=== PATIENT | male | born 1960 | race Caucasian/White ===

== ENCOUNTER → 2017-08-07 11:02 | Outpatient (CLI) | payer BC, SELFPAY ==
--- NOTE | 2017-08-07 11:09 | VDLE_ITS ---
Reason For Study: EDEMA Procedure LEFT Exam performed in department. GSV is normal. A preliminary report was called and/or CFV is compressible, spontaneous, phasic, faxed to DR Carrie pt taken to ED. competent, and demonstrates normal augmentation. FV is compressible, spontaneous, phasic, competent and demonstrates normal augmentation. POP V is compressible, spontaneous, phasic, competent and demonstrates normal augmentation. T/P Trunk is compressible. PTV is compressible. LT PerV is compressible. There are two hypoechoic, nonvascularized structures located POSTERIORLY to the Pop V measuring 2.1 x 1.2 cm and 1.7 x 2.4 cm. Interpretation Summary There is no evidence of left lower extremity deep vein thrombosis. Left greater saphenous vein appears patent and compressible segmentally. 2.1 x 1.2cm and 1.7 x 2.4cm cytic structures left popliteal space Ordering Physician: Yudy Butler Referring Physician: RENZO BLANC Performed By: Balbina Gregg, NUZHATCS, RVT
== END ==
PROVIDERS: Family Provider Family Medicine; PCP Family Medicine; Visit Provider Family Medicine
DX: R60.0 Localized edema (principal)
CPT/HCPCS: 93971

== ENCOUNTER 2017-08-07 11:46 | Emergency (ER) | payer BC, SELFPAY ==
[2017-08-07 11:47] VITALS: BP 136/82; PULSE 84; RESP 18; TEMP 36.6; O2SAT 97; BMI 29.8
[2017-08-07 11:58] VITALS: BP 125/82; PULSE 77; RESP 14; O2SAT 97
--- NOTE | 2017-08-07 12:59 | CT_ITS ---
STUDY: CT LEFT KNEE/LOWER LEG WITH CONTRAST REASON FOR EXAM: Mass behind left knee. TECHNIQUE: Transaxial CT imaging of the knee/lower leg was performed post contrast administration. The examination was performed with intravenous administration of 100CC ml of Isovue 300 contrast material. COMPARISON: Radiographs 08/07/2017. FINDINGS: Normal medial femoral condyle and medial tibial plateau. There is preservation of the articular joint space of the medial knee compartment. Normal lateral femoral condyle and lateral tibial plateau. There is preservation of the articular joint space of the lateral knee compartment. Normal proximal tibiofibular articulation. Normal tibia and fibula. There is a small joint effusion of the knee. The quadriceps tendon is grossly normal. The patellar tendon is grossly normal. Normal Hoffa's fat pad. There is a lobulated cystic lesion extending from the popliteus musculotendinous junction into the popliteus muscle (sagittal reconstructions 45-55; axial images 53-74) measuring approximately 2.1 x 5.3 cm (AP x length). There is no abnormal contrast enhancement. The leading differential consideration is a ganglion cyst of the popliteus musculotendinous junction. A myxoma of the popliteus muscle also is a differential consideration. MRI with contrast would be more useful in evaluation. There is edema in the subcutis adipose space of the lower leg. CT/Extremity Lower WITH Contrast IMPRESSION: Lobulated cystic lesion extending from the popliteus musculotendinous junction into the popliteus muscle, differential considerations would include a ganglion cyst and myxoma. Small joint effusion of the knee. Edema in the subcutis adipose space of the lower leg. Electronically Signed: Yohan Adame MD at 14:38 EDT Tel , Service support ,
--- NOTE | 2017-08-07 12:59 | RAD_ITS ---
STUDY: X-RAY - LEFT KNEE REASON FOR EXAM: Male, 57 years old. Left leg mass and pain, distal tibia and fibula x4 days. TECHNIQUE: 4 view(s) of the knee. COMPARISON: None available. FINDINGS: Mild medial and patellofemoral compartmental joint space narrowing noted. Mild osteophyte projects superiorly off the patellar articular margin with lateral view. Normal visualized proximal tibia and fibula. Normal proximal tibiofibular articulation. Moderate suprapatellar increased diffuse density identified, may represent joint effusion and/or soft tissue swelling. Normal lateral femorotibial compartment. No finding of acute displaced fracture, dislocation or radiopaque foreign body identified. No subcutaneous emphysema noted. RAD/Knee 4 or More Views IMPRESSION: Moderate suprapatellar joint effusion and/or soft tissue swelling noted for which sterility cannot be determined radiographically. Clinical correlation recommended. Mild prepatellar soft tissue swelling. No finding of acute displaced fracture or dislocation identified. Electronically Signed: Javier Chamberlain, at 14:53 EDT Tel , Service support ,
[2017-08-07 13:09] LABS: Absolute Neutrophil Count 4.8 X10^3/uL (2.0-7.7); Basophil# 0.02 X10^3/uL; Basophil% 0.3 % (0-1); Eosinophil# 0.18 X10^3/uL; Eosinophils% 2.4 % (0-5); Hematocrit 42.7 % (40-54); Hemoglobin 14.2 g/dl (13.0-16.5); Lymphocyte % 22.9 % (19-41); Mean Corp Hgb Conc 33.3 g/gl (32-36); Mean Corpuscular Hgb 29.2 pg (27.0-32.0); Mean Corpuscular Volume 87.7 fL (80-94); Mean Platelet Vol. 9.3 fl (6.2-12.0); Monocyte# 0.74 X10^3/uL; Neutrophil # 4.77 X10^3/uL (2.7-7.7); Neutrophil % 64.3 % (47-70); Platelet Count 213 K/mm3 (150-450); RBC Distribution Width CV 13.1 % (11.6-14.6); RBC Distribution Width SD 41.8 fl (35.1-43.9); Red Blood Count 4.87 M/mm3 (4.6-6.2); White Blood Count 7.4 K/mm3 (4.4-11.0)
[2017-08-07 13:24] LABS: Anion Gap 5 (5-15); BUN 15 mg/dL (7-18); BUN/Creat Ratio 18.8 RATIO (10-20); CPK Total, Creatine Kinase 206 U/L (39-308); Chloride 104 mmol/L (98-107); EST Glomerular Filtration Rate 106 mL/min (>60); Est Glom Filt Rate - Afr Amer 129 mL/min (>60); Estimated Creatinine Clearance 113.17 ml/min; Glucose 104 mg/dL (74-106); Potassium 4.5 mmol/L (3.5-5.1); Sodium Level 138 mmol/L (136-145)
[2017-08-07 13:38] LABS: POSITIVE COUNT NO; POSITIVE DIFFERENTIAL NO; POSITIVE MORPHOLOGY NO
--- NOTE | 2017-08-07 15:43 | ED.DCSUM_ITS ---
- ER Visit Summary Date of Service: 08/07/17 Chief Complaint: Leg pain History of Present Illness: The patient is a 57 M with left leg pain. The patient has left leg pain and swelling for 5 days. He was sent because he had an abnormal outpatient ultrasound. He has no history of DVT or PE. No sign of trauma. No sign of infection or history of infection. Physical Examination: Afebrile and vital signs unremarkable. Compartment soft, but his left calf is swollen and tender. He is neurovascular intact distally. No sign of erythema or warmth. Skin is intact. Test Results: Labs including CBC, BMP, and CK normal. X-rays show a knee effusion but no fracture. CT shows a lobulated cystic lesion at the popliteus muscle with concern for either ganglion cyst or myxoma. Emergency Department Course and Treatment: I spoke with the radiologist. He was recommending an MRI. This would give more information, but does not need to be done emergently. He does not think this is an abscess based on his imaging and I do not think it is an abscess based on my exam or laboratory findings. He said it would be extremely rare for this to be some type of malignancy. I spoke with the patient's on-call primary care doctor. They will follow-up with him as an outpatient for MRI. I will also refer him to orthopedics as needed. He was given crutches and a short course of Percocet. His prescription database record is negative. Treatment Plan: As above Disposition: Discharged Impression: 1. Left leg mass This note was generated with [employer] dictation software. It may contain incorrect words, spelling, and punctuation that were not noted in review of the chart prior to signing ED Disposition - Plan for ED Patient: Chief Complaint: Lower Extremity Injury Referrals: Ashok Galeana MD [Primary Care Provider] -
--- NOTE | 2017-08-07 15:43 | ED.DEP ---
ED Disposition - Plan for ED Patient: Chief Complaint: Lower Extremity Injury Instructions: Using Crutches: [id number] Prescriptions: Oxycodone HCl/Acetaminophen [Percocet 5/325] 1 tab PO Q6H PRN PRN 3 Days #12 tab PRN Reason: Pain Referrals: González Banuelos MD [STAFF PHYSICIAN] - As Needed Ashok Galeana MD [Primary Care Provider] - As soon as possible
== END 2017-08-07 15:56 | disposition home or self-care (01) ==
PROVIDERS: Emergency Provider Emergency Medicine; Family Provider Family Medicine; PCP Family Medicine
DX: M62.89 Other specified disorders of muscle (principal)
CPT/HCPCS: 73564; 73701; 80048; 82550; 85025; 96360; 99284; J7030; J7040; Q9967; A4216

== ENCOUNTER → 2017-08-08 16:20 | Outpatient (CLI) | payer BC, SELFPAY ==
[2017-08-08 17:30] LABS: Synovial Fld Mononuclear WBC % 15.5 %; Synovial Fld Polynuclear WBC # 23.802 10^3/ul; Synovial Fld Polynuclear WBC % 84.5 %
[2017-08-08 19:42] LABS: AUTO B FLUID DILUENT BKGD CT WBC <0.1 RBC <0.01 (W<.1,R<.01); Source- Body Fluid SYNOVIAL
[2017-08-08 19:43] LABS: Appearance /Synovial Fluid Turbid (CLEAR); Color / Synovial Fluid Yellow (Pale Yellow); Lymph 8 %; Neutrophil 92 % (0-25); RBC /Synovial Fluid 107 /mm3 (0); Synovial Fld Mononuclear WBC # 4.357 10^3/ul
[2017-08-08 19:44] LABS: Body Fluid QC Type(s) BF1Q,BF2Q; Pathologist Review Will follow
[2017-08-09 14:15] LABS: Pathologist Comment Reviewed
== END ==
PROVIDERS: Family Provider Family Medicine; PCP Family Medicine; Visit Provider Specialist
DX: M25.462 Effusion, left knee (principal)
CPT/HCPCS: 87015; 87070; 87075; 87101; 87116; 87205; 87206; 89050; 89051; 89060

== ENCOUNTER → 2017-08-19 15:15 | Outpatient (CLI) | payer BC, SELFPAY ==
--- NOTE | 2017-08-19 15:54 | EKG12_ITS ---
Test Reason : PRE OP Blood Pressure : / mmHG Vent. Rate : 075 BPM Atrial Rate : 075 BPM P-R Int : 178 ms QRS Dur : 102 ms QT Int : 384 ms P-R-T Axes : 025 -14 026 degrees QTc Int : 428 ms Normal sinus rhythm Minimal voltage criteria for LVH, may be normal variant Borderline ECG Confirmed by QUINTON SERRANO, MUSTAPHA ([id number]), assignment editor KRIS CHAMPION ([id number]) on 08/20/2017 8:51:09 AM Referred By: González Banuelos Confirmed By:MUSTAPHA ALCANTARA MD
[2017-08-19 16:41] LABS: Hematocrit 43.6 % (40-54); Hemoglobin 14.8 g/dl (13.0-16.5); Mean Corp Hgb Conc 33.9 g/gl (32-36); Mean Corpuscular Hgb 29.3 pg (27.0-32.0); Mean Corpuscular Volume 86.3 fL (80-94); Mean Platelet Vol. 9.5 fl (6.2-12.0); Platelet Count 351 K/mm3 (150-450); RBC Distribution Width CV 12.9 % (11.6-14.6); Red Blood Count 5.05 M/mm3 (4.6-6.2); White Blood Count 7.1 K/mm3 (4.4-11.0)
[2017-08-19 16:58] LABS: Scan Indicated on CBC? Y/N NO
[2017-08-19 17:14] LABS: Anion Gap 7 (5-15); BUN 18 mg/dL (7-18); BUN/Creat Ratio 21.3 RATIO (10-20); Calcium,Total 9.4 mg/dL (8.5-10.1); Chloride 100 mmol/L (98-107); Creatinine, Serum 0.84 mg/dL (0.70-1.30); EST Glomerular Filtration Rate 100 mL/min (>60); Est Glom Filt Rate - Afr Amer 121 mL/min (>60); Glucose 96 mg/dL (74-106); Potassium 4.4 mmol/L (3.5-5.1); Sodium Level 136 mmol/L (136-145)
== END ==
PROVIDERS: Family Provider Family Medicine; PCP Family Medicine; Visit Provider Specialist
DX: Z01.818 Encounter for other preprocedural examination (principal)
CPT/HCPCS: 36415; 80048; 85027; 93005

== ENCOUNTER → 2017-12-31 07:34 | Outpatient (CLI) | payer BC, SELFPAY ==
--- NOTE | 2017-12-31 10:47 | NEURO_ITS ---
NCS and/or EMG Patient Report Ordering Doctor: González Banuelos DATE OF SERVICE: 12/31/17 This is a lower extremity EMG and nerve conduction study performed on this 57- year-old male with numbness on the bottom of his left foot for approximately 5 months. He says he has had a Dempsey's cyst and is left knee he also had arthroscopic surgery in his left knee 2-3 months ago. He says the numbness may have improved to some extent. There is no history of back pain. Right side is normal without symptoms. Left lower extremity sensory and motor nerve conduction studies performed. The sural sensory and medial and lateral plantar responses on the left are preserved. The left peroneal motor and tibial motor distal latencies, amplitudes and conduction velocities are normal. The tibial and peroneal F- wave latencies and tibial H reflexes bilaterally are normal. Left lower extremity needle electromyography is performed. Muscles evaluated included the extensor digitorum brevis, abductor halitosis, medial gastrocnemius , anterior tibialis, vastus medialis and vastus lateralis muscles. All muscles demonstrated normal insertional activity with absence of pathologic spontaneous activity. Motor unit potential recruitment pattern and amplitude was normal in all muscles tested. Impression: Normal electrophysiologic study of the left lower extremity
== END ==
PROVIDERS: Family Provider Family Medicine; PCP Family Medicine; Visit Provider Specialist
DX: R20.8 Other disturbances of skin sensation (principal)
CPT/HCPCS: 95886; 95910

== ENCOUNTER → 2019-05-09 07:50 | Outpatient (CLI) | payer BC, SELFPAY ==
[2019-05-09 09:21] LABS: Anion Gap 3 (5-15); BUN 13 mg/dL (7-18); BUN/Creat Ratio 14.4 RATIO (10-20); Chloride 106 mmol/L (98-107); Cholesterol 256 mg/dL (200); EST Glomerular Filtration Rate 92 mL/min (>60); Est Glom Filt Rate - Afr Amer 111 mL/min (>60); Glucose 106 mg/dL (74-106); High Density Lipoprotein 44 mg/dL; PSA,Total - Annual Screen 2.26 ng/mL (0.00-4.00); Potassium 4.2 mmol/L (3.5-5.1); Sodium Level 140 mmol/L (136-145); Triglycerides 128 mg/dL; Very Low Density Lipoprotein 26 mg/dL (5-40)
== END ==
PROVIDERS: Family Provider Family Medicine; PCP Family Medicine; Referring Provider Nurse Practitioner Family; Visit Provider Nurse Practitioner Family
DX: Z00.00 Encounter for general adult medical examination without abnormal findings (principal); Z12.5 Encounter for screening for malignant neoplasm of prostate
CPT/HCPCS: 36415; 80048; 80061; 84153; G0103

== ENCOUNTER → 2020-03-23 15:30 | Outpatient (CLI) | payer BC, SELFPAY ==
[2020-03-23 19:09] LABS: ALB/GLOB Ratio 0.9 RATIO (0.9-2.4); AST(SGOT) 25 U/L (15-37); Alanine Aminotransfer ALT/SGPT 43 U/L (16-61); Albumin, Serum 3.8 g/dL (3.2-5.0); Alkaline Phosphatase 82 U/L (45-117); Anion Gap 7 (5-15); BUN 15 mg/dL (7-18); BUN/Creat Ratio 16.7 RATIO (10-20); Calcium,Total 9.1 mg/dL (8.5-10.1); Chloride 103 mmol/L (98-107); Cholesterol 229 mg/dL (200); EST Glomerular Filtration Rate 92 mL/min (>60); Est Glom Filt Rate - Afr Amer 111 mL/min (>60); Globulin 4.2 g/dL (2.2-4.2); Glucose 94 mg/dL (74-106); High Density Lipoprotein 38 mg/dL; Sodium Level 136 mmol/L (136-145); T4 Free Direct 1.12 ng/dL (0.76-1.46); Thyroid Stim Hormone (TSH) 1.47 uIU/mL (0.358-3.74); Triglycerides 224 mg/dL; Very Low Density Lipoprotein 45 mg/dL (5-40)
[2020-04-01 04:44] LABS: Anti-Thyroglobulin AB 1.1 IU/mL (0.0-0.9); Thyroglobulin RIA 2.4 ng/mL (.); Thyroid Peroxidase AB 17 IU/mL (0-34)
== END ==
PROVIDERS: PCP Family Medicine; Referring Provider Family Medicine; Visit Provider Family Medicine
DX: E78.5 Hyperlipidemia, unspecified (principal); E01.0 Iodine-deficiency related diffuse (endemic) goiter
CPT/HCPCS: 36415; 80053; 80061; 84432; 84439; 84443; 86376; 86800

== ENCOUNTER → 2020-04-02 09:54 | Outpatient (CLI) | payer BC, SELFPAY ==
--- NOTE | 2020-04-02 10:00 | US_ITS ---
STUDY: THYROID ULTRASOUND REASON FOR EXAM: Male, 59 years old. THYROMEGALY TECHNIQUE: Ultrasound evaluation of the thyroid was performed with real-time and static bee-scale imaging. COMPARISON: None. FINDINGS: RIGHT LOBE: The right lobe of the thyroid gland measures 5.1 x 1.7 x 2.1 cm. There is a homogeneous echotexture. Mid pole subcentimeter cyst which is solid in nature with slight internal vascularity measuring 7 x 5 x 5 mm. LEFT LOBE: The left lobe of the thyroid gland measures 4.3 x 1.5 x 1.6 cm. There is a homogeneous echotexture. Single upper pole solid nodule measuring 3 x 2 x 2 mm. ISTHMUS: The isthmus measures 4 mm. The regional lymph nodes are normal. US/Thyroid IMPRESSION: Small subcentimeter nodules bilaterally. Otherwise, unremarkable thyroid exam Electronically Signed: Tab Pierce DO at 8:19 EST Tel , Service support ,
== END ==
PROVIDERS: PCP Family Medicine; Referring Provider Family Medicine; Visit Provider Family Medicine
DX: E01.0 Iodine-deficiency related diffuse (endemic) goiter (principal)
CPT/HCPCS: 76536

== ENCOUNTER → 2023-04-11 | Outpatient (CLI) | payer BC, SELFPAY ==
[2023-04-11 12:12] LABS: Absolute Lymphocyte Count 1.35 X10^3/uL (0.83-4.51); Absolute Neutrophil Count 3.4 X10^3/uL (2.0-7.7); Basophil# 0.05 X10^3/uL; Basophil% 0.9 % (0-1); Eosinophil# 0.36 X10^3/uL; Eosinophils% 6.5 % (0-5); Hemoglobin 14.9 g/dL (13.0-16.5); Lymphocyte # 1.35 X10^3/ul (0.83-4.51); Lymphocyte % 24.5 % (19-41); Mean Corp Hgb Conc 32.4 g/dL (32-36); Mean Corpuscular Hgb 29.3 pg (27.0-32.0); Mean Corpuscular Volume 90.4 fL (80-94); Mean Platelet Vol. 10.1 fl (6.2-12.0); Monocyte# 0.38 X10^3/uL; Monocyte% 6.9 % (0-10); NRBC Flagged by Analyzer 0 % (0-5); Neutrophil # 3.35 X10^3/uL (2.7-7.7); Neutrophil % 60.8 % (47-70); Platelet Count 225 K/mm3 (150-450); RBC Distribution Width CV 12.6 % (11.6-14.6); RBC Distribution Width SD 41.6 fl (35.1-43.9); Red Blood Count 5.09 M/mm3 (4.6-6.2); White Blood Count 5.5 K/mm3 (4.4-11.0)
[2023-04-11 12:40] LABS: AST(SGOT) 16 U/L (15-37); Alanine Aminotransfer ALT/SGPT 33 U/L (16-61); Albumin, Serum 3.7 g/dL (3.2-5.0); Alkaline Phosphatase 65 U/L (45-117); Anion Gap 4 (5-15); BUN 14 mg/dL (7-18); BUN/Creat Ratio 16.4 RATIO (10-20); Calcium,Total 8.6 mg/dL (8.5-10.1); Chloride 106 mmol/L (98-107); Cholesterol 190 mg/dL (200); Creatinine, Serum 0.86 mg/dL (0.70-1.30); EST Glomerular Filtration Rate 97 mL/min (>60); Est Glom Filt Rate - Afr Amer 117 mL/min (>60); Globulin 3.6 g/dL (2.2-4.2); Glucose 104 mg/dL (74-106); High Density Lipoprotein 44 mg/dL; PSA,Total - Annual Screen 3.29 ng/mL (0.00-4.00); Potassium 4.5 mmol/L (3.5-5.1); Protein, Total 7.3 g/dL (6.4-8.2); Sodium Level 138 mmol/L (136-145); Triglycerides 84 mg/dL; Very Low Density Lipoprotein 17 mg/dL (5-40)
== END | disposition home or self-care (01) ==
PROVIDERS: PCP Family Medicine; Visit Provider Family Medicine
DX: Z12.5 Encounter for screening for malignant neoplasm of prostate (principal); E78.5 Hyperlipidemia, unspecified
CPT/HCPCS: 36415; 80053; 80061; 84153; 85025; G0103

== ENCOUNTER → 2024-04-30 | Outpatient (CLI) | payer BC, SELFPAY ==
[2024-04-30 18:01] LABS: Hemoglobin A1c 5.7 % (3.8-5.6)
[2024-04-30 18:04] LABS: Cholesterol 224 mg/dL (200); High Density Lipoprotein 47 mg/dL; PSA,Total - Annual Screen 4.55 ng/mL (0.00-4.00); Triglycerides 70 mg/dL; Very Low Density Lipoprotein 14 mg/dL (5-40)
== END | disposition home or self-care (01) ==
LOC: MFPLAB 15:55
PROVIDERS: PCP Family Medicine
DX: Z00.00 Encounter for general adult medical examination without abnormal findings (principal); Z12.5 Encounter for screening for malignant neoplasm of prostate
CPT/HCPCS: 36415; 80061; 83036; 84153; G0103

== ENCOUNTER → 2025-05-11 | Outpatient (CLI) | payer BC, SELFPAY ==
[2025-05-11 18:22] LABS: Anion Gap 11 (7-18); BUN 14 mg/dL (4-19); BUN/Creat Ratio 15.5 RATIO (10-20); Calcium,Total 9.6 mg/dL (7.6-11.0); Carbon Dioxide 23.7 mmol/L (20.0-29.0); Chloride 102 mmol/L (96-106); Cholesterol 253 mg/dL (<=200); Glucose 93 mg/dL (70-99); Low Density Lipoprotein Calc. 186 mg/dL; PSA,Total - Annual Screen 3.78 ng/mL (0.02-4.00); Potassium 4.0 mmol/L (3.5-5.1); Triglycerides 121 mg/dL; Very Low Density Lipoprotein 24 mg/dL (5-40); cholesterol:hdl ratio screen 5.67
== END | disposition home or self-care (01) ==
LOC: MFPLAB 14:47
PROVIDERS: PCP Family Medicine; Referring Provider Nurse Practitioner Family; Visit Provider Nurse Practitioner Family
DX: Z13.1 Encounter for screening for diabetes mellitus (principal); Z12.5 Encounter for screening for malignant neoplasm of prostate; Z13.220 Encounter for screening for lipoid disorders
CPT/HCPCS: 36415; 80048; 80061; 84153; G0103